=== PATIENT | male | born 1995 | race Caucasian/White ===

== ENCOUNTER 2024-05-14 11:07 | Emergency (ER) | payer MEDICAID ==
[~2024-05-14] VITALS: Ht 177.8 cm; Wt 95.0 kg
[2024-05-14 11:22] VITALS: O2SAT 96
[2024-05-14 11:27] VITALS: TEMP 98.5; O2SAT 98
[2024-05-14] MEDS ORDERED: CYCL25PO15 MT (12:35)
[2024-05-14 13:03] VITALS: BP 149/80; PULSE 83; RESP 18
[2024-05-14] MEDS: KETOROLAC 30MG/ML VIAL IM ONE (13:03)
[2024-05-14] MEDS ORDERED: CYCL5TAB MT (13:46)
== END 2024-05-14 13:38 | disposition home or self-care (01) ==
LOC: ER 11:18
DX: M54.50 Low back pain, unspecified (principal); Z98.890 Other specified postprocedural states
CPT/HCPCS: 96372; 99283; J1885; Z7610

== ENCOUNTER 2024-05-22 07:51 | Emergency (ER) | payer MEDICAID ==
[~2024-05-22] VITALS: Ht 180.3 cm; Wt 93.0 kg
[~2024-05-22 07:51] MED LIST: CYCL5TAB MT
[2024-05-22 08:03] VITALS: O2SAT 98
[2024-05-22] MEDS ORDERED: DICL50TA7 MT (08:47)
[2024-05-22] MEDS: KETOROLAC 30MG/ML VIAL IM STA (08:55)
[2024-05-22 09:02] VITALS: BP 124/70; PULSE 87; RESP 16; TEMP 37.00296; O2SAT 98
== END 2024-05-22 09:10 | disposition home or self-care (01) ==
LOC: ER 07:51
DX: M54.50 Low back pain, unspecified (principal)
CPT/HCPCS: 99283; 96372; J1885